=== PATIENT | female | born 1950 | race Caucasian/White ===

== ENCOUNTER 2018-01-01 23:54 | Emergency (ER) | payer MEDICARE, MEDICAID ==
[~2018-01-01] VITALS: Ht 165.1 cm; Wt 77.1 kg
[~2018-01-01 23:54] MED LIST: HYDR-1421; LEVO25TA49; LISI-275; LORA-205 PO; METF-370; SIMV80TA62 PO
[2018-01-02 00:03] VITALS: BP 202/91
[2018-01-02] MEDS: ALPRAZolam 0.25 MG TAB PO ONE ×2 (02:54→03:06)
== END 2018-01-02 03:20 | disposition left against medical advice (07) ==
LOC: EDBD 23:54 → ER 23:58
DX: F41.9 Anxiety disorder, unspecified (principal); Z53.21 Procedure and treatment not carried out due to patient leaving prior to being seen by health care provider
CPT/HCPCS: 82962; 93005

== ENCOUNTER 2019-05-14 21:33 | Emergency (ER) | payer MEDICARE, MEDICAID ==
[~2019-05-14] VITALS: Ht 162.6 cm; Wt 86.2 kg
[2019-05-14 22:39] LABS: Basophils # (auto) 0 uL; Basophils % (auto) 0.5 % (0.0-2.0); Eosinophils # (auto) 0.1 uL; Hemoglobin 14.6 g/dL (12.2-16.2); Lymphocytes # (auto) 1.7 uL; Mean Corpuscular Hemoglobin 31.7 pg (28.0-32.0); Mean Corpuscular Hgb Conc. 33.8 g/dL (32.0-36.0); Mean Corpuscular Volume 93.5 fL (80.0-100.0); Monocytes # (auto) 0.5 uL; Monocytes % (auto) 7.7 % (0.0-12.0); Neutrophils # (auto) 4.1 uL; Neutrophils % (auto) 64.8 % (37.0-80.0); Platelet Count (auto) 273 10^3/uL (140-450); Red Cell Distribution Width 13.7 % (11.8-14.3); White Blood Cell 6.4 10^3/uL (4.4-10.8)
[2019-05-14 22:52] LABS: Albumin 3.6 g/dL (3.4-5.0); Calcium 8.9 mg/dL (8.5-10.1); Potassium 3.9 mmol/L (3.5-5.1)
[2019-05-14 22:55] LABS: Bilirubin, Total 0.5 mg/dL (0.2-1.0); Total Protein 7.5 g/dL (6.4-8.2)
[2019-05-15] MEDS ORDERED: ONDANSETRON HCL 4 MG/2 ML VIAL IV ONE (07:00)
[2019-05-15] MEDS ORDERED: SODIUM CHLORIDE 0.9% 500 ML IVB ONE (07:32)
[2019-05-15 10:08] VITALS: BP 158/64
== END 2019-05-15 11:11 | disposition home or self-care (01) ==
LOC: ER 21:33 → EDBD 21:33 → ER 05-15 11:11
DX: K52.9 Noninfective gastroenteritis and colitis, unspecified (principal); E11.22 Type 2 diabetes mellitus with diabetic chronic kidney disease; I12.9 Hypertensive chronic kidney disease with stage 1 through stage 4 chronic kidney disease, or unspecified chronic kidney disease; N18.9 Chronic kidney disease, unspecified; E78.5 Hyperlipidemia, unspecified; I25.2 Old myocardial infarction; Z87.11 Personal history of peptic ulcer disease; Z98.61 Coronary angioplasty status; Z90.710 Acquired absence of both cervix and uterus; Z86.39 Personal history of other endocrine, nutritional and metabolic disease
CPT/HCPCS: 36415; 74176; 80053; 83690; 85025; 94761; 96361; 96374; 99284; J2405; J7030

== ENCOUNTER 2019-08-04 23:18 | Emergency (ER) | payer MEDICARE, MEDICAID ==
[~2019-08-04] VITALS: Ht 170.2 cm; Wt 81.6 kg
[2019-08-05 00:02] LABS: Urine Bacteria NONE SEEN /hpf (None Seen); Urine Blood Negative /uL (Negative); Urine Specific Gravity 1.005 (1.001-1.035); Urine WBC <1 /hpf (0 - 5)
[2019-08-05 00:40] LABS: Basophils # (auto) 0 uL; Eosinophils # (auto) 0.1 uL; Hemoglobin 13.9 g/dL (12.2-16.2); Lymphocytes # (auto) 2.1 uL; Monocytes # (auto) 0.5 uL; Neutrophils # (auto) 5.1 uL; Red Cell Distribution Width 14.3 % (11.8-14.3); White Blood Cell 7.9 10^3/uL (4.4-10.8)
[2019-08-05 00:44] LABS: Basophils % (auto) 0.2 % (0.0-2.0); Eosinophils % (auto) 1.4 % (0.0-7.0); Hematocrit 40.4 % (36.0-46.0); Lymphocytes % (auto) 26.8 % (10.0-50.0); Mean Corpuscular Hgb Conc. 34.4 g/dL (32.0-36.0); Mean Corpuscular Volume 93.2 fL (80.0-100.0); Monocytes % (auto) 6.3 % (0.0-12.0); Neutrophils % (auto) 65.3 % (37.0-80.0); Nucleated Red Blood Cells % 0.1 %; Platelet Count (auto) 241 10^3/uL (140-450); Red Blood Cells 4.33 10^6/uL (4.0-5.20)
[2019-08-05 00:45] LABS: Alanine Aminotransferase 31 U/L (13-56); Albumin 3.2 g/dL (3.4-5.0); Anion Gap 8 (5-15); Aspartate Aminotransferase 14 U/L (15-37); BUN/Creatinine Ratio 8.8; Blood Urea Nitrogen 8 mg/dL (7-18); Calcium 8.2 mg/dL (8.5-10.1); Carbon Dioxide 23 mmol/L (21-32); Chloride 106 mmol/L (98-107); GFR African American 79 mL/min; GFR Non-African American 65 mL/min; Glucose 154 mg/dL (74-106); Lipase 64 U/L (73-393); Potassium 3.5 mmol/L (3.5-5.1); Sodium 137 mmol/L (136-145)
[2019-08-05 00:47] LABS: INR < 0.93 (0.9-1.15); Partial Thromboplastin Time 24.7 sec (23.64-32.05)
[2019-08-05 00:50] LABS: Alkaline Phosphatase 129 U/L (45-117); Bilirubin, Total 0.3 mg/dL (0.2-1.0)
[2019-08-05] MEDS ORDERED: SODIUM CHLORIDE 0.9% 1,000 ML IVB ONE (07:26)
[2019-08-05] MEDS ORDERED: KETOROLAC TROMETH 30 MG/ML 1ML VIAL IV ONE (07:30)
[2019-08-05] MEDS ORDERED: PROMETHAZINE HCL 25 MG/ML 1ML IV PRN (07:30)
[2019-08-05] MEDS ORDERED: ACETAMINOPHEN 500 MG TAB PO ONE (12:00)
[2019-08-05 12:09] VITALS: BP 152/48
== END 2019-08-05 12:59 | disposition home or self-care (01) ==
LOC: ER 23:18 → EDBD 23:18 → ER 08-05 12:59
DX: K52.9 Noninfective gastroenteritis and colitis, unspecified (principal); F41.9 Anxiety disorder, unspecified; E11.65 Type 2 diabetes mellitus with hyperglycemia; R22.9 Localized swelling, mass and lump, unspecified; D23.9 Other benign neoplasm of skin, unspecified; E46 Unspecified protein-calorie malnutrition; I25.119 Atherosclerotic heart disease of native coronary artery with unspecified angina pectoris; E11.22 Type 2 diabetes mellitus with diabetic chronic kidney disease; I12.9 Hypertensive chronic kidney disease with stage 1 through stage 4 chronic kidney disease, or unspecified chronic kidney disease; N18.9 Chronic kidney disease, unspecified; E78.5 Hyperlipidemia, unspecified; I25.2 Old myocardial infarction; E07.9 Disorder of thyroid, unspecified; F17.210 Nicotine dependence, cigarettes, uncomplicated; Z68.28 Body mass index [BMI] 28.0-28.9, adult; Z90.710 Acquired absence of both cervix and uterus; Z98.61 Coronary angioplasty status
CPT/HCPCS: 36415; 71045; 74176; 76856; 80053; 81001; 83690; 83880; 84484; 85025; 85610; 85730; 93005; 94761; 96361; 96374; 99284; J1885; J7030

== ENCOUNTER 2024-01-11 15:16 | Inpatient (IN) | payer MEDICARE, MEDICAID ==
[~2024-01-11] VITALS: Ht 162.6 cm; Wt 81.0 kg
[~2024-01-11 15:16] MED LIST changes: +SIMV80TA2 PO; -SIMV80TA62 PO
[2024-01-11] MEDS: PROCHLORPERAZINE EDISYLATE 5 MG/ML 2ML VIAL IV ONE (15:30)
[2024-01-11] MEDS: MORPHINE SULFATE 4 MG/ML SYR/VIAL IV ONE (15:30)
[2024-01-11] MEDS: SODIUM CHLORIDE 0.9% 500 ML IVB ONE (15:30)
[2024-01-11 16:02] LABS: Basophils # (auto) 0.1 10 ^3/uL (0-0.2); Basophils % (auto) 0.5 % (0.0-2.0); Eosinophils # (auto) 0 10 ^3/uL (0-0.8); Eosinophils % (auto) 0.3 % (0.0-7.0); Hematocrit 36.8 % (36.0-46.0); Hemoglobin 11.9 g/dL (12.2-16.2); Lymphocytes # (auto) 1.7 10 ^3/uL (0.4-5.4); Lymphocytes % (auto) 12.3 % (10.0-50.0); Mean Corpuscular Hemoglobin 29.6 pg (28.0-32.0); Mean Corpuscular Hgb Conc. 32.5 g/dL (32.0-36.0); Mean Corpuscular Volume 91.3 fL (80.0-100.0); Monocytes # (auto) 0.6 10 ^3/uL (0-1.3); Monocytes % (auto) 4.5 % (0.0-12.0); Neutrophils # (auto) 11.5 10 ^3/uL (1.6-8.6); Neutrophils % (auto) 82.4 % (37.0-80.0); Red Blood Cells 4.03 10^6/uL (4.0-5.20); Red Cell Distribution Width 15.1 % (11.8-14.3); White Blood Cell 13.9 10^3/uL (4.4-10.8)
[2024-01-11 16:25] LABS: Albumin 4.3 g/dL (3.2-4.8); Alkaline Phosphatase 90 U/L (46-116); Anion Gap 9 (5-15); Aspartate Aminotransferase < 8 U/L (13-40); BUN/Creatinine Ratio 21.3 (10.0-20.0); Blood Urea Nitrogen 20 mg/dL (9-23); Calcium 9.1 mg/dL (8.7-10.4); Carbon Dioxide 22 mmol/L (20-30); Chloride 106 mmol/L (98-107); Glucose 278 mg/dL (74-106); Lipase 46 U/L (12-53); Sodium 137 mmol/L (136-145)
[2024-01-11 16:26] LABS: Alanine Aminotransferase < 9 U/L (7-40); Bilirubin, Total 0.3 mg/dL (0.2-1.0); Total Protein 6.7 g/dL (5.7-8.2)
[2024-01-11 17:51] LABS: Urine Bacteria MOD /hpf (None Seen); Urine Blood 3+ /uL (Negative); Urine Clarity CLOUDY (Clear); Urine Color PINK (Yellow); Urine Mucus FEW (None Seen); Urine Protein, UAD TRACE (Negative); Urine Specific Gravity 1.021 (1.001-1.035); Urine Urobilinogen Normal (Negative); Urine WBC 51 /hpf (0 - 5); Urine pH 6.5 (5.0-8.0)
[2024-01-11] MEDS ORDERED: ACETAMINOPHEN 325 MG TAB PO PRN (19:45)
[2024-01-11] MEDS ORDERED: DEXTROSE (50%) 50ML SYRG IV PRN (19:45)
[2024-01-11] MEDS ORDERED: ATOR40TA52 PO (19:45)
[2024-01-11] MEDS ORDERED: LEVO125T7 PO (19:45)
[2024-01-11] MEDS ORDERED: QUET1TAB11 PO (19:45)
[2024-01-11] MEDS ORDERED: RANO500T3 PO (19:45)
[2024-01-11] MEDS ORDERED: NIFE90TA75 PO (19:45)
[2024-01-11] MEDS ORDERED: GABA-1250 PO (19:45)
[2024-01-11] MEDS: RANOLAZINE ER 500 MG TAB PO SCH (22:00)
[2024-01-11] MEDS: InsuLIN REG 1unit/0.01ml Soln (100units/ml) SC SCH (22:00)
[2024-01-11] MEDS: SODIUM CHLOR 0.9% PF (SALINE LOCK) 10ML VIAL/SYR IV SCH (22:00)
[2024-01-11] MEDS: GABAPENTIN 300 MG CAP PO SCH (22:00)
[2024-01-11] MEDS: ACCU-CHEK COMFORT CURVE STRIP VI SCH (22:00)
[2024-01-12 01:28] VITALS: PULSE 81; RESP 18; O2SAT 95
[2024-01-12] MEDS ORDERED: GLIM4TAB PO (04:48)
[2024-01-12] MEDS ORDERED: LOS25T PO (04:48)
[2024-01-12] MEDS ORDERED: BREX1TAB PO (04:48)
[2024-01-12] MEDS ORDERED: PARO-135 PO (04:48)
[2024-01-12] MEDS ORDERED: LOPE2TAB78 PO (04:48)
[2024-01-12] MEDS ORDERED: METF-372 PO (04:48)
[2024-01-12] MEDS ORDERED: INSUINJ37 SC (04:50)
[2024-01-12 05:00] VITALS: BP 172/84; PULSE 104; RESP 18; TEMP 98.1; O2SAT 95
[2024-01-12] MEDS: HYDROcodone-ACET 5/325MG TAB PO PRN (05:09)
[2024-01-12] MEDS: MORPHINE SULFATE INJ 2 MG/ml SYRG IV PRN (06:27)
[2024-01-12 06:37] LABS: Basophils # (auto) 0.1 10 ^3/uL (0-0.2); Basophils % (auto) 0.5 % (0.0-2.0); Eosinophils # (auto) 0 10 ^3/uL (0-0.8); Eosinophils % (auto) 0.4 % (0.0-7.0); Hematocrit 34.3 % (36.0-46.0); Hemoglobin 11.2 g/dL (12.2-16.2); Lymphocytes # (auto) 2.1 10 ^3/uL (0.4-5.4); Lymphocytes % (auto) 17.4 % (10.0-50.0); Mean Corpuscular Hemoglobin 29.8 pg (28.0-32.0); Mean Corpuscular Hgb Conc. 32.8 g/dL (32.0-36.0); Monocytes # (auto) 0.7 10 ^3/uL (0-1.3); Monocytes % (auto) 5.6 % (0.0-12.0); Neutrophils % (auto) 76.1 % (37.0-80.0); Red Blood Cells 3.77 10^6/uL (4.0-5.20); Red Cell Distribution Width 15.3 % (11.8-14.3); White Blood Cell 11.8 10^3/uL (4.4-10.8)
[2024-01-12] MEDS: LEVOTHYROXINE SODIUM 25 MCG TAB PO SCH (06:37)
[2024-01-12] MEDS: LEVOTHYROXINE SODIUM 100 MCG TAB PO SCH (06:37)
[2024-01-12] MEDS: InsuLIN REG 1unit/0.01ml Soln (100units/ml) SC SCH (06:43)
[2024-01-12 06:51] LABS: Alanine Aminotransferase 10 U/L (7-40); Alkaline Phosphatase 88 U/L (46-116); Anion Gap 9 (5-15); BUN/Creatinine Ratio 24.4 (10.0-20.0); Blood Urea Nitrogen 29 mg/dL (9-23); Calcium 9.5 mg/dL (8.5-10.1); Carbon Dioxide 23 mmol/L (20-30); Chloride 104 mmol/L (98-107); Glucose 223 mg/dL (74-106); Potassium 3.9 mmol/L (3.5-5.1); Sodium 136 mmol/L (136-145)
[2024-01-12 06:52] LABS: Albumin 4.5 g/dL (3.2-4.8); Aspartate Aminotransferase < 8 U/L (13-40); Bilirubin, Total 0.2 mg/dL (0.2-1.0); Total Protein 6.6 g/dL (5.7-8.2)
[2024-01-12 08:30] VITALS: BP 188/83; PULSE 91; RESP 20; TEMP 98.1; O2SAT 96
[2024-01-12] MEDS: ATORVASTATIN 20 MG TAB PO SCH (09:53)
[2024-01-12] MEDS: NIFEdipine ER 30 MG TAB PO SCH (09:54)
[2024-01-12] MEDS: QUEtiapine FUMARATE 25 MG TAB PO SCH (09:54)
[2024-01-12] MEDS: cefTRIAXone 1GM/50ML D5W 50 ML IV ONE (13:45)
[2024-01-12] MEDS: metroNIDAZOLE 500MG/100ML 100 ML IV SCH (14:00)
[2024-01-12 15:13] LABS: INR 1.04 (0.9-1.15); Partial Thromboplastin Time 26.8 SEC (24.5-34.5); Prothrombin Time 10.9 sec (9.3-11.8)
[2024-01-12 16:25] VITALS: BP 121/59; PULSE 93; RESP 20; TEMP 98.4; O2SAT 95
[2024-01-12 21:56] VITALS: BP 146/80; PULSE 99; RESP 20; TEMP 98.1; O2SAT 93
[2024-01-13] VITALS (8 sets, daily range): BP systolic 136–165; BP diastolic 64–78; PULSE 85–100; RESP 16–22; TEMP 97.6–98.9; O2SAT 93–99
[2024-01-13] MEDS: cefTRIAXone 1GM/50ML D5W 50 ML IV SCH (07:38)
[2024-01-13 17:38] LABS: COVID19 ANTIGEN SOFIA FIA NEGATIVE (NEGATIVE)
[2024-01-14] MEDS: ONDANSETRON HCL 4 MG/2 ML VIAL IV PRN (04:48)
[2024-01-14 05:00] VITALS: BP 165/84; PULSE 91; RESP 18; TEMP 97.6; O2SAT 91
[2024-01-14 08:00] VITALS: BP 149/68; PULSE 88; RESP 16; RESP 17; TEMP 98.1; O2SAT 92
[2024-01-14 08:46] VITALS: BP 149/68; PULSE 88; RESP 17; TEMP 98.1; O2SAT 92
[2024-01-14] MEDS ORDERED: PAR20T PO (11:01)
[2024-01-14] MEDS ORDERED: QUET25TA37 PO (11:01)
[2024-01-14] MEDS ORDERED: RANO500T3 PO (11:01)
[2024-01-14] MEDS ORDERED: POTA-228 PO (11:01)
[2024-01-14] MEDS ORDERED: ARIP2TAB PO (11:01)
[2024-01-14 22:00] VITALS: BP 113/64; PULSE 111; RESP 20; TEMP 98.1; O2SAT 97
[2024-01-15] MEDS: DOCUSATE SOD 100 MG CAP PO PRN (01:31)
[2024-01-15 05:00] VITALS: BP 157/79; PULSE 91; RESP 20; TEMP 97.8; O2SAT 98
[2024-01-15] MEDS: CALCIUM CARB 500 MG CHEW TAB PO PRN (06:35)
[2024-01-15 08:46] VITALS: BP 121/63; PULSE 95; RESP 16; TEMP 98.7; O2SAT 91
[2024-01-15] MEDS: PANTOPRAZOLE 40 MG TAB PO SCH (11:34)
[2024-01-15] MEDS: PARoxetine 20 MG TAB PO SCH (11:34)
[2024-01-15 13:09] VITALS: BP 178/76; PULSE 89; RESP 16; TEMP 98.2; O2SAT 94
[2024-01-15] MEDS: hydrALAZINE HCL 20 MG/ML VL IV ONE (16:31)
[2024-01-15 16:37] VITALS: BP 115/52; PULSE 94; RESP 18; TEMP 98.7; O2SAT 95
[2024-01-15 22:05] VITALS: BP 132/57; PULSE 95; RESP 20; TEMP 98.6; O2SAT 95
[2024-01-15] MEDS: FLEET ENEMA(ADULT) 135 ML PR ONE (22:21)
[2024-01-16] VITALS (7 sets, daily range): BP systolic 125–155; BP diastolic 54–73; PULSE 75–98; RESP 16–20; TEMP 98.1–98.5; O2SAT 93–96
== END 2024-01-16 16:38 | DRG 720 ==
LOC: ER 15:16 → EDBD 15:16 → OVERFLOW 19:45 → CENTRAL 23:20
PROVIDERS: ADMIT Nurse Practitioner Family; ATTEND Family Medicine
PROC: 05HB33Z Insertion of Infusion Device into Right Basilic Vein, Percutaneous Approach (ICD-10-PCS; principal; 2024-01-15)
PROC: B54BZZA Ultrasonography of Right Lower Extremity Veins, Guidance (ICD-10-PCS; 2024-01-15)
DX: A41.9 Sepsis, unspecified organism (principal); E11.22 Type 2 diabetes mellitus with diabetic chronic kidney disease; D35.02 Benign neoplasm of left adrenal gland; N39.0 Urinary tract infection, site not specified; I12.9 Hypertensive chronic kidney disease with stage 1 through stage 4 chronic kidney disease, or unspecified chronic kidney disease; I25.10 Atherosclerotic heart disease of native coronary artery without angina pectoris; N18.9 Chronic kidney disease, unspecified; E03.9 Hypothyroidism, unspecified; K80.20 Calculus of gallbladder without cholecystitis without obstruction; E11.65 Type 2 diabetes mellitus with hyperglycemia; F17.210 Nicotine dependence, cigarettes, uncomplicated; K92.1 Melena; Z20.822 Contact with and (suspected) exposure to COVID-19; Z53.8 Procedure and treatment not carried out for other reasons; E78.00 Pure hypercholesterolemia, unspecified; N83.202 Unspecified ovarian cyst, left side; F32.A Depression, unspecified; Z95.5 Presence of coronary angioplasty implant and graft; Z88.5 Allergy status to narcotic agent; I25.2 Old myocardial infarction; Z79.4 Long term (current) use of insulin; Z78.0 Asymptomatic menopausal state; Z79.84 Long term (current) use of oral hypoglycemic drugs; Z79.899 Other long term (current) drug therapy; Z90.710 Acquired absence of both cervix and uterus; Z87.11 Personal history of peptic ulcer disease; Z83.3 Family history of diabetes mellitus; Z82.49 Family history of ischemic heart disease and other diseases of the circulatory system
CPT/HCPCS: 36415; 74176; 76705; 76856; 78226; 80053; 81001; 82378; 82962; 83036; 83690; 84484; 85025; 85610; 85730; 86304; 86850; 86900; 86901; 87426; 93005; 97110; 97116; 97163; G0378; J1815; J2405; J3490

== ENCOUNTER 2024-03-07 19:37 | Emergency (ER) | payer MEDICARE, MEDICAID ==
[~2024-03-07] VITALS: Ht 162.6 cm; Wt 77.0 kg
[~2024-03-07 19:37] MED LIST changes: +ARIP10TA29 PO; +ATOR40TA52 PO; +BREX1TAB PO; +GABA-1250 PO; +GLIM4TAB PO; -HYDR-1421; +INSUINJ37 SC; +LACT10SO3 PO; +LEVO100T8 PO; -LEVO25TA49; -LISI-275; +LOPE2TAB78 PO; -LORA-205 PO; +LOS25T PO; -METF-370; +METF-372 PO; +NIFE90TA75 PO; +PAR20T PO; +POTA-228 PO; +QUET1TAB11 PO; +RANO500T3 PO; -SIMV80TA2 PO
[2024-03-08 04:32] VITALS: PULSE 83; RESP 20; O2SAT 95
[2024-03-08] MEDS: ACETAMINOPHEN/CODEINE#3 (300/30mg) TAB PO ONE (04:47)
[2024-03-09] MEDS: DEXTROSE (50%) 50ML SYRG IV ONE ×2 (08:40→21:41)
[2024-03-09] MEDS: InsuLIN REG 1unit/0.01ml Soln (100units/ml) SC ONE ×2 (08:50→21:35)
[2024-03-09] MEDS: LEVOTHYROXINE SODIUM 100 MCG TAB PO SCH (08:51)
[2024-03-09] MEDS: LOSARTAN POTASSIUM 25 MG TAB PO SCH (10:15)
[2024-03-09] MEDS: GABAPENTIN 300 MG CAP PO SCH (10:16)
[2024-03-09] MEDS: QUEtiapine FUMARATE 25 MG TAB PO SCH (10:16)
[2024-03-09] MEDS: PARoxetine 20 MG TAB PO SCH (10:55)
[2024-03-09] MEDS: ACETAMINOPHEN 500 MG TAB PO ONE (10:55)
[2024-03-09] MEDS: ACCU-CHEK COMFORT CURVE STRIP VI ONE ×2 (12:28→21:35)
[2024-03-09] MEDS: cloNIDine HCL 0.1 MG TAB PO ONE (14:19)
[2024-03-09 19:30] VITALS: PULSE 83; RESP 18; O2SAT 98
[2024-03-09] MEDS: ATORVASTATIN 20 MG TAB PO SCH (22:04)
[2024-03-09 22:23] LABS: Urine Bacteria None Seen /hpf (None Seen)
[2024-03-09 22:43] LABS: Urine Blood 2+ /uL (Negative); Urine Clarity Clear (Clear); Urine Color Light-Yellow (Yellow); Urine Protein, UAD TRACE (Negative); Urine Specific Gravity 1.017 (1.001-1.035); Urine Urobilinogen Normal (Negative); Urine WBC 3 /hpf (0 - 5)
[2024-03-10] MEDS: ACETAMINOPHEN 500 MG TAB PO ONE (06:02)
[2024-03-10] MEDS: ACCU-CHEK COMFORT CURVE STRIP VI ONE (06:36)
[2024-03-10] MEDS: InsuLIN REG 1unit/0.01ml Soln (100units/ml) SC ONE (06:39)
[2024-03-10 08:00] VITALS: PULSE 94; RESP 16; O2SAT 98
[2024-03-10] MEDS ORDERED: DEXTROSE (50%) 50ML SYRG IV PRN (13:30)
[2024-03-10] MEDS: InsuLIN REG 1unit/0.01ml Soln (100units/ml) SC SCH (17:35)
[2024-03-10] MEDS: ACCU-CHEK COMFORT CURVE STRIP VI SCH (17:36)
[2024-03-10] MEDS: ACETAMINOPHEN 325 MG TAB PO ONE (19:38)
[2024-03-10 20:00] VITALS: PULSE 93; RESP 20; O2SAT 96
[2024-03-11] MEDS: METOCLOPRAMIDE HCL 10 MG TAB PO ONE (01:03)
[2024-03-11] MEDS: GABAPENTIN 300 MG CAP ONE (06:35)
[2024-03-11] MEDS: LEVOTHYROXINE SODIUM 100 MCG TAB ONE (06:35)
[2024-03-11] MEDS: InsuLIN REG 1unit/0.01ml Soln (100units/ml) ONE ×2 (06:48→17:15)
[2024-03-11 07:30] VITALS: PULSE 81; RESP 16; O2SAT 95
[2024-03-11 19:30] VITALS: PULSE 99; RESP 15; O2SAT 95
[2024-03-11] MEDS: LORazepam 0.5 MG TAB PO ONE (20:52)
[2024-03-11] MEDS: niMODipine 30 MG CAP PO ONE (21:08)
[2024-03-11] MEDS: hydrALAZINE HCL 10 MG TAB PO ONE (21:14)
[2024-03-12 07:35] VITALS: PULSE 75; RESP 16; O2SAT 94
[2024-03-12] MEDS: cloNIDine HCL 0.1 MG TAB PO ONE ×2 (10:51→19:12)
[2024-03-12] MEDS: InsuLIN REG 1unit/0.01ml Soln (100units/ml) ONE (23:43)
[2024-03-13] MEDS: ACETAMINOPHEN 325 MG TAB PO ONE ×3 (04:30→21:43)
[2024-03-13] MEDS: InsuLIN REG 1unit/0.01ml Soln (100units/ml) ONE ×3 (07:12→21:43)
[2024-03-13 07:50] VITALS: RESP 16
[2024-03-13] MEDS: LEVOTHYROXINE SODIUM 50 MCG TAB ONE (08:12)
[2024-03-13 12:15] VITALS: RESP 18; O2SAT 98
[2024-03-13] MEDS: LOPERAMIDE HCL 2 MG CAP/TAB PO ONE (21:06)
[2024-03-13] MEDS: amLODIPine BESYLATE 5 MG TAB PO ONE (21:06)
[2024-03-14] MEDS: hydrALAZINE HCL 10 MG TAB PO ONE (00:11)
[2024-03-14] MEDS: ENALAPRIL MALEATE 2.5 MG TAB PO ONE (02:41)
[2024-03-14] MEDS: DIPHENOXYLATE W/ATROPINE 2.5 MG TAB PO ONE (02:41)
[2024-03-14] MEDS: ENALAPRIL MALEATE 2.5 MG TAB ONE (02:43)
[2024-03-14] MEDS: DIPHENOXYLATE W/ATROPINE 2.5 MG TAB ONE (02:43)
[2024-03-14] MEDS: InsuLIN REG 1unit/0.01ml Soln (100units/ml) ONE (07:06)
[2024-03-14] MEDS: LEVOTHYROXINE SODIUM 100 MCG TAB ONE (07:06)
[2024-03-14 07:59] VITALS: PULSE 73; RESP 16; O2SAT 96
[2024-03-14 21:05] VITALS: PULSE 78; RESP 14; O2SAT 96
[2024-03-14] MEDS: ACETAMINOPHEN 325 MG TAB PO ONE (22:00)
[2024-03-15] MEDS: ACETAMINOPHEN 325 MG TAB PO ONE (06:33)
[2024-03-15] MEDS: cloNIDine HCL 0.1 MG TAB PO ONE (13:57)
[2024-03-15 19:58] VITALS: BP 145/71; PULSE 66; RESP 20; TEMP 98.7; O2SAT 97
== END 2024-03-16 07:34 | disposition home or self-care (01) ==
LOC: ER 19:37 → EDBD 19:37 → ER 03-15 19:58
DX: R10.9 Unspecified abdominal pain (principal); E11.22 Type 2 diabetes mellitus with diabetic chronic kidney disease; I12.9 Hypertensive chronic kidney disease with stage 1 through stage 4 chronic kidney disease, or unspecified chronic kidney disease; N18.9 Chronic kidney disease, unspecified; K21.9 Gastro-esophageal reflux disease without esophagitis; E78.5 Hyperlipidemia, unspecified; F17.210 Nicotine dependence, cigarettes, uncomplicated; Z75.1 Person awaiting admission to adequate facility elsewhere; Z90.710 Acquired absence of both cervix and uterus
CPT/HCPCS: 81001; 82962; 96372; 99285; J1815; J8597